=== PATIENT | female | born 1965 | race Caucasian/White ===

== ENCOUNTER 2018-08-06 23:31 | Inpatient (IN) | payer OTHER ==
--- NOTE | 2018-08-07 01:58 | HP ---
"CIWA Score - Admission Criteria OASAS Guidelines: Admission for Medically Managed Detox: Requires at least one of the followin. CIWA greater than 12 2. Seizures within the past 24 hours 3. Delirium tremens within the past 24 hours 4. Hallucinations within the past 24 hours 5. Acute intervention needed for co occurring medical disorder 6. Acute intervention needed for co occurring psychiatric disorder 7. Severe withdrawal that cannot be handled at a lower level of care (continued vomiting, continued diarrhea, abnormal vital signs) requiring intravenous medication and/or fluids 8. Admission ROS S - HPI Chief Complaint: Here for rehab. Allergies/Adverse Reactions: Allergies Allergy/AdvReac Type Severity Reaction Status Date / Time Penicillins Allergy Unknown Verified 08/07/18 02:02 History of Present Illness: Hx alcohol use since age 20. Recent hospitalization and Detox at [facility]. Admitted 07/13/18 and discharged 08/06/18. Denies withdrawal symptoms at this time. PMHx: Cirrhosis of the Liver GI bleed 07/21/18 Jaundice started about March 2018. Urinary urgency w/ incontinence. Reviewed Kegel exercises. Uses adult pull- ups on occasion. Skin rash- r/t liver - itchy Skin moles. Stable MHHx Depression and anxiety. Denies thoughts of harming self or other. Takes prescribed Seroquel and Trazodone. See a mental health provider. Search Terms: Reanna Mosley, 1965 Search Date: 08/07/2018 02:26:26 AM The Drug Utilization Report below displays all of the controlled substance prescriptions, if any, that your patient has filled in the last twelve months. The information displayed on this report is compiled from pharmacy submissions to the Department, and accurately reflects the information as submitted by the pharmacies. This report was requested by: Arcelia Felipe | Reference #: [id number] There are no results for the search terms that you entered. Exam Limitations: No Limitations - Ebola screening Have you traveled outside of the country in the last 21 days: No (N) Have you had contact with anyone from an Ebola affected area: No Have you been sick,other than usual withdrawal symptoms: No Do you have a fever: No - Review of Systems Constitutional: Chills, Changes in sleep (Difficulty falling asleep - helped w/ trazodone) EENT: reports: Blurred Vision, Sinus Pressure, Other (Oc bloody nose) Respiratory: reports: Cough (Nagging cough - recent tx for bronchitits.) Cardiac: reports: No Symptoms Reported GI: reports: Rectal Bleeding (Recent bloody stools. Resovled. Denies abd pain, nausea or vomiting.) : reports: Urgency (Resulting in incontinence. Denies burnibng, pain or blood w/ urination.) Musculoskeletal: reports: No Symptoms Reported Integumentary: reports: Rash (Generalized - r/t liver disorder), Other ( Jaundiced) Neuro: reports: No Symptoms reported Endocrine: reports: Intolerance to Cold Hematology: reports: No Symptoms Reported Psychiatric: reports: Judgement Intact, Orientated x3, Depressed (Mild. Denies thoughts of harming self or other.) Patient History - Patient Medical History Hx Cardiac Disorders: No Hx Hypertension: No - PPD History Previous Implant?: Yes Documented Results: Negative w/o proof PPD to be Administered?: Yes - Reproductive History Patient is a Female of Child Bearing Age (11 -55 yrs old): Yes Patient : No - Smoking Cessation Smoking history: Never smoked - Substance & Tx. History Hx Alcohol Use: Yes Hx Substance Use: Yes Substance Use Type: Alcohol Hx Substance Use Treatment: Yes (detox) Admission Physical Exam BHS - Physical General Appearance: Yes: Nourished, Appropriately Dressed, Other (Jaundiced) HEENTM: Yes: EOMI, Hearing grossly Normal, Normocephalic, Normal Voice, RAFAELA, Scleral Ictenus R, Scleral Ictenus L Respiratory: Yes: Lungs Clear, Normal Breath Sounds, No Respiratory Distress Neck: Yes: No masses,lesions,Nodules, Supple Breast: Yes: Breast Exam Deferred Cardiology: Yes: Regular Rhythm, Regular Rate, S1, S2 Abdominal: Yes: Normal Bowel Sounds, Non Tender, Soft Genitourinary: Yes: Uregency (w/ incontinence) Back: Yes: Normal Inspection Musculoskeletal: Yes: full range of Motion, Gait Steady Extremities: Yes: Normal Capillary Refill, Normal Range of Motion, Tremors Neurological: Yes: packager II-XII NML intact, Fully Oriented, Alert, Motor Strength 5/5, Normal Mood/Affect Integumentary: Yes: Dry, Warm, Jaundice (Generalized deep yellow skin.), Rash ( Generalized red spotty rash. Scattered moles.) Lymphatic: Yes: Within Normal Limits - Diagnostic (1) Alcohol use disorder, moderate, in early remission Current Visit: Yes Status: Acute (2) Cirrhosis Current Visit: Yes Status: Chronic Qualifiers: Hepatic cirrhosis type: alcoholic cirrhosis Ascites presence: without ascites Qualified Code(s): K70.30 - Alcoholic cirrhosis of liver without ascites (3) Jaundice Current Visit: Yes Status: Chronic (4) History of GI bleed Current Visit: Yes Status: Resolved (5) Incontinence of urine in female Current Visit: Yes Status: Chronic Comment: Associated with urgency (6) Rash and other nonspecific skin eruption Current Visit: Yes Status: Chronic Cleared for Admission BHS - Detox or Rehab Claeared for Rehab Admission: Yes Inpatient Rehab Admission - Rehab Decision to Admit Inpatient rehab admission?: Yes - Initial Determination Are CD services needed?: Yes Free of communicable disease: Yes Not in need of hospitalization: Yes - Rehab Admission Criteria Previous failed treatment: Yes Poor recovery environment: Yes Comorbidities: Yes Lacks judgement: No Patient is meeting Inpatient Rehab admission criteria:: Yes"
[2018-08-07] MEDS ORDERED: MAG HYDROX/AL HYDROX/SIMETH 30 ML UNIT-DOSE CUP PO PRN (02:02)
[2018-08-07] MEDS ORDERED: ACETAMINOPHEN 325 MG TABLET (FP) PO PRN (02:02)
[2018-08-07] MEDS ORDERED: MAGNESIUM HYDROX 2400MG/30ML ORAL SUSPENSION 30 ML CUP PO PRN (02:02)
[2018-08-07] MEDS ORDERED: MENTHOL/PHENOL 1 EACH UD MM PRN (02:02)
[2018-08-07] MEDS ORDERED: MAGNESIUM CITRATE 300 ML BOTTLE PO PRN (02:02)
[2018-08-07] MEDS ORDERED: LOPERAMIDE HCL 2 MG CAPSULE PO PRN (02:02)
[2018-08-07] MEDS ORDERED: MINERAL OIL/PETROLAT/WATER TOPICAL CREAM 454 GM JAR TP PRN (03:00)
[2018-08-07] MEDS ORDERED: traZODone HCL 50 MG TABLET (FP) PO ONE (03:01)
[2018-08-07] MEDS ORDERED: TUBERCULIN PPD 5 TU/0.1ML VIAL ID ONE (04:16)
[2018-08-07] MEDS: guaiFENesin 200 MG/10 ML 10 ML UNIT-DOSE CUPS PO PRN ×2 (04:24→21:30)
[2018-08-07 07:37] VITALS: BMI 23.3
[2018-08-07] MEDS: PANTOPRAZOLE 40 MG TABLET (FP) PO SCH (10:35)
[2018-08-07] MEDS: PRENATAL VITAMINS W/ FOLIC ACID TABLET (FP) PO SCH (10:35)
[2018-08-07 12:08] LABS: HEMOGLOBIN 10.5 GM/dL (10.7-15.3); MCH 38.8 pg (25.7-33.7)
[2018-08-07 12:11] LABS: HEMATOCRIT 30.5 % (32.4-45.2); MCHC 34.5 g/dl (32.0-36.0); MEAN CELL VOLUME 112.4 fl (80-96); PLATELET COUNT 270 K/MM3 (134-434); RBC 2.72 M/mm3 (3.60-5.2); RDW 16.2 % (11.6-15.6); WHITE BLOOD COUNT 8.3 K/mm3 (4.0-10.0)
[2018-08-07 12:37] LABS: ALBUMIN 2.4 g/dl (3.4-5.0); ALK PHOS 279 U/L (45-117); ANION GAP 8 MMOL/L (8-16); BLOOD UREA NITROGEN 5 mg/dL (7-18); CALCIUM 8.7 mg/dL (8.5-10.1); CHLORIDE 102 mmol/L (98-107); CO2 26 mmol/L (21-32); CREATININE 0.8 mg/dL (0.55-1.3); GLUCOSE,RANDOM 99 mg/dL (74-106); POTASSIUM 3.3 mmol/L (3.5-5.1); SGOT/AST 95 U/L (15-37); SGPT/ALT 15 U/L (13-61); SODIUM 136 mmol/L (136-145); TOT PROT 7.3 g/dl (6.4-8.2)
[2018-08-07 17:09] LABS: URINE APPEARANCE CLEAR; URINE COLOR AMBER; URINE GLUCOSE (UA) NEGATIVE (NEGATIVE); URINE KETONE NEGATIVE (NEGATIVE); URINE LEUK ESTERASE NEGATIVE (NEGATIVE); URINE NITRITE NEGATIVE (NEGATIVE); URINE PROTEIN NEGATIVE (NEGATIVE)
[2018-08-07] MEDS: THIAMINE HCL 100 MG TABLET (FP) PO SCH (21:27)
[2018-08-07] MEDS: MELATONIN 5 MG TABLETS PO PRN (21:28)
[2018-08-07] MEDS: hydrOXYzine PAMOATE 25 MG CAPSULE (FP) PO PRN (21:29)
[2018-08-08] MEDS: PRENATAL VITAMINS W/ FOLIC ACID TABLET (FP) PO SCH (10:08)
[2018-08-08] MEDS: PANTOPRAZOLE 40 MG TABLET (FP) PO SCH (10:08)
[2018-08-08] MEDS: guaiFENesin 200 MG/10 ML 10 ML UNIT-DOSE CUPS PO PRN (18:22)
[2018-08-08] MEDS: THIAMINE HCL 100 MG TABLET (FP) PO SCH (21:05)
[2018-08-08] MEDS: hydrOXYzine PAMOATE 25 MG CAPSULE (FP) PO PRN (21:05)
[2018-08-08] MEDS: MELATONIN 5 MG TABLETS PO PRN (21:05)
--- NOTE | 2018-08-09 09:33 | CONSULT ---
[facility] Psychiatric Consult - Data Date of interview: 08/09/18 Admission source: [facility] Identifying data: Ms Mosley is a 53 years old female, mother of 2 children, unemployed, domiciled seeking inpatient rehab treatment for alcohol Substance Abuse History: Reports history of alcohol use. Refer to addiction counselor's summary for further information Medical History: Significant for cirrhosis of the liver and historym of gasto intestinal bleeding. Psychiatric History: Reports receiving treatment for anxiety for the past 4 years. Reports seeing a private psychiatrist in [place] and she is prescribed Seroquel 25 mg po BID, Trazadone 100 mg po Hs and Gabapentin mg TID. She denies previous psychiatric chospitalization or suicidal attempt. At present, reports feeling mildly anxious and sleeping poorly Physical/Sexual Abuse/Trauma History: Denies history of emotional, physical or sexual abuse as well as DV relationship. No service Additional Comment: Denies criminal history Mental Status Exam - Mental Status Exam Alert and Oriented to: Time, Place, Person Cognitive Function: Fair Patient Appearance: Well Groomed Mood: Anxious (mildly) Affect: Appropriate Patient Behavior: Cooperative Speech Pattern: Clear Voice Loudness: Normal Thought Process: Intact Thought Disorder: Not Present Hallucinations: Denies Suicidal Ideation: Denies Homicidal Ideation: Denies Insight/Judgement: Fair Sleep: Poorly Appetite: Fair Muscle strength/Tone: Normal Gait/Station: Normal Psychiatric Findings - Problem List ([place] 1, 2,3) (1) Anxiety disorder Current Visit: Yes Status: Chronic (2) Alcohol-induced anxiety disorder Current Visit: Yes Status: Acute (3) Alcohol-induced sleep disorder Current Visit: Yes Status: Acute (4) Alcohol dependence Current Visit: Yes Status: Acute (5) Cirrhosis Current Visit: Yes Status: Chronic Qualifiers: Hepatic cirrhosis type: alcoholic cirrhosis Ascites presence: without ascites Qualified Code(s): K70.30 - Alcoholic cirrhosis of liver without ascites (6) History of GI bleed Current Visit: Yes Status: Resolved - Initial Treatment Plan Initial Treatment Plan: 1) Continue Seroquel 25 mg po BID, Trazadone 100 mg po HS and Gabapentin TID. 2) Continue inpatient detoxification
[2018-08-09] MEDS: PANTOPRAZOLE 40 MG TABLET (FP) PO SCH (10:14)
[2018-08-09] MEDS: QUEtiapine FUMARATE 25 MG TABLET (FP) PO SCH ×2 (10:14→21:33)
[2018-08-09] MEDS: PRENATAL VITAMINS W/ FOLIC ACID TABLET (FP) PO SCH (10:14)
[2018-08-09] MEDS: guaiFENesin 200 MG/10 ML 10 ML UNIT-DOSE CUPS PO PRN ×2 (11:00→21:34)
[2018-08-09] MEDS ORDERED: PT OWN MED DRAWER 7, Y5N ONE (11:02)
--- NOTE | 2018-08-09 11:24 | EKG ---
Test Reason : Blood Pressure : / mmHG Vent. Rate : 096 BPM Atrial Rate : 096 BPM P-R Int : 124 ms QRS Dur : 086 ms QT Int : 382 ms P-R-T Axes : 069 036 013 degrees QTc Int : 482 ms NORMAL SINUS RHYTHM POSSIBLE LEFT ATRIAL ENLARGEMENT NONSPECIFIC ST ABNORMALITY PROLONGED QT ABNORMAL ECG NO PREVIOUS ECGS AVAILABLE Confirmed by CARLOS ALBERTO GAYLE MD ([id number]) on 08/09/2018 11:23:53 AM Referred By: Confirmed By:CARLOS ALBERTO GAYLE MD
[2018-08-09] MEDS: THIAMINE HCL 100 MG TABLET (FP) PO SCH (21:33)
[2018-08-09] MEDS: traZODone HCL 100 MG TABLET (FP) PO SCH (21:33)
[2018-08-10] MEDS: PRENATAL VITAMINS W/ FOLIC ACID TABLET (FP) PO SCH (10:02)
[2018-08-10] MEDS: PANTOPRAZOLE 40 MG TABLET (FP) PO SCH (10:02)
[2018-08-10] MEDS: QUEtiapine FUMARATE 25 MG TABLET (FP) PO SCH ×2 (10:02→21:05)
[2018-08-10] MEDS: traZODone HCL 100 MG TABLET (FP) PO SCH (21:05)
[2018-08-10] MEDS: THIAMINE HCL 100 MG TABLET (FP) PO SCH (21:05)
[2018-08-10] MEDS: guaiFENesin 200 MG/10 ML 10 ML UNIT-DOSE CUPS PO PRN (21:06)
[2018-08-10] MEDS ORDERED: diphenhydrAMINE HCL 50 MG CAPSULE PO PRN (22:00)
[2018-08-11] MEDS: PRENATAL VITAMINS W/ FOLIC ACID TABLET (FP) PO SCH (09:54)
[2018-08-11] MEDS: PANTOPRAZOLE 40 MG TABLET (FP) PO SCH (09:54)
[2018-08-11] MEDS: QUEtiapine FUMARATE 25 MG TABLET (FP) PO SCH ×2 (09:55→21:21)
--- NOTE | 2018-08-11 11:02 | PN ---
[facility] Progress Note Note: client c/o itching yesterday and agreed to Benadryl 50 mg at bedtime. Today she states that although the Benadryl relieves the itch, the effect does not remain during the day and is requesting to have the doses split. In addition, she requested to review her chemistry labs because of her liver cirrhosis. CBC,CMP WBC 8.3 K/mm3 (4.0-10.0) 08/07/18 09:40 RBC 2.72 M/mm3 (3.60-5.2) L 08/07/18 09:40 Hgb 10.5 GM/dL (10.7-15.3) L 08/07/18 09:40 Hct 30.5 % (32.4-45.2) L 08/07/18 09:40 MCV 112.4 fl (80-96) H 08/07/18 09:40 MCH 38.8 pg (25.7-33.7) H 08/07/18 09:40 MCHC 34.5 g/dl (32.0-36.0) 08/07/18 09:40 RDW 16.2 % (11.6-15.6) H 08/07/18 09:40 Plt Count 270 K/MM3 (134-434) 08/07/18 09:40 MPV 8.0 fl (7.5-11.1) 08/07/18 09:40 Sodium 136 mmol/L (136-145) 08/07/18 09:40 Potassium 3.3 mmol/L (3.5-5.1) L 08/07/18 09:40 Chloride 102 mmol/L (98-107) 08/07/18 09:40 Carbon Dioxide 26 mmol/L (21-32) 08/07/18 09:40 Anion Gap 8 MMOL/L (8-16) 08/07/18 09:40 BUN 5 mg/dL (7-18) L 08/07/18 09:40 Creatinine 0.8 mg/dL (0.55-1.3) 08/07/18 09:40 Creat Clearance w eGFR > 60 (>60) 08/07/18 09:40 Random Glucose 99 mg/dL (74-106) 08/07/18 09:40 Calcium 8.7 mg/dL (8.5-10.1) 08/07/18 09:40 Total Bilirubin 15.0 mg/dL (0.2-1) H 08/07/18 09:40 AST 95 U/L (15-37) H 08/07/18 09:40 ALT 15 U/L (13-61) 08/07/18 09:40 Alkaline Phosphatase 279 U/L (45-117) H 08/07/18 09:40 Ammonia 33.60 umol/L (11-32) H 08/07/18 09:40 Total Protein 7.3 g/dl (6.4-8.2) 08/07/18 09:40 Albumin 2.4 g/dl (3.4-5.0) L 08/07/18 09:40 Benadryl was changed to 25 mg BID. Chemistry labs, specifically liver enzymes were reviewed with patient, who stated she understood the teaching. Client will f/u with PCP upon discharge for care.
[2018-08-11] MEDS: diphenhydrAMINE HCL 25 MG CAPSULE (FP) PO SCH ×2 (11:59→21:21)
[2018-08-11] MEDS: THIAMINE HCL 100 MG TABLET (FP) PO SCH (21:20)
[2018-08-11] MEDS: guaiFENesin 200 MG/10 ML 10 ML UNIT-DOSE CUPS PO PRN (21:20)
[2018-08-11] MEDS: traZODone HCL 100 MG TABLET (FP) PO SCH (21:21)
[2018-08-12] MEDS: PANTOPRAZOLE 40 MG TABLET (FP) PO SCH (10:08)
[2018-08-12] MEDS: diphenhydrAMINE HCL 25 MG CAPSULE (FP) PO SCH ×2 (10:08→21:43)
[2018-08-12] MEDS: QUEtiapine FUMARATE 25 MG TABLET (FP) PO SCH ×2 (10:08→21:43)
[2018-08-12] MEDS: PRENATAL VITAMINS W/ FOLIC ACID TABLET (FP) PO SCH (10:08)
[2018-08-12] MEDS: traZODone HCL 100 MG TABLET (FP) PO SCH (21:43)
[2018-08-12] MEDS: THIAMINE HCL 100 MG TABLET (FP) PO SCH (21:43)
[2018-08-13] MEDS: QUEtiapine FUMARATE 25 MG TABLET (FP) PO SCH ×2 (10:26→21:11)
[2018-08-13] MEDS: PANTOPRAZOLE 40 MG TABLET (FP) PO SCH (10:26)
[2018-08-13] MEDS: diphenhydrAMINE HCL 25 MG CAPSULE (FP) PO SCH ×2 (10:26→21:11)
[2018-08-13] MEDS: PRENATAL VITAMINS W/ FOLIC ACID TABLET (FP) PO SCH (10:26)
[2018-08-13] MEDS: guaiFENesin 200 MG/10 ML 10 ML UNIT-DOSE CUPS PO PRN ×2 (10:28→21:14)
[2018-08-13] MEDS: traZODone HCL 100 MG TABLET (FP) PO SCH (21:11)
[2018-08-13] MEDS: THIAMINE HCL 100 MG TABLET (FP) PO SCH (21:11)
[2018-08-14] MEDS: PRENATAL VITAMINS W/ FOLIC ACID TABLET (FP) PO SCH (10:21)
[2018-08-14] MEDS: diphenhydrAMINE HCL 25 MG CAPSULE (FP) PO SCH ×2 (10:21→21:29)
[2018-08-14] MEDS: PANTOPRAZOLE 40 MG TABLET (FP) PO SCH (10:21)
[2018-08-14] MEDS: QUEtiapine FUMARATE 25 MG TABLET (FP) PO SCH ×2 (10:21→21:29)
[2018-08-14] MEDS: guaiFENesin 200 MG/10 ML 10 ML UNIT-DOSE CUPS PO PRN (10:22)
[2018-08-14 11:07] LABS: ANION GAP 10 MMOL/L (8-16); BLOOD UREA NITROGEN 6 mg/dL (7-18); CALCIUM 8.5 mg/dL (8.5-10.1); CHLORIDE 104 mmol/L (98-107); CO2 25 mmol/L (21-32); CREATININE 0.7 mg/dL (0.55-1.3); GLUCOSE,RANDOM 70 mg/dL (74-106); POTASSIUM 3.4 mmol/L (3.5-5.1); SODIUM 139 mmol/L (136-145)
[2018-08-14] MEDS ORDERED: POTASSIUM CHLORIDE ORAL LIQUID 20 MEQ/15 ML PO ONE (11:38)
--- NOTE | 2018-08-14 11:45 | PN ---
[facility] Progress Note Note: Laboratory Last Values WBC 8.3 K/mm3 (4.0-10.0) 08/07/18 09:40 RBC 2.72 M/mm3 (3.60-5.2) L 08/07/18 09:40 Hgb 10.5 GM/dL (10.7-15.3) L 08/07/18 09:40 Hct 30.5 % (32.4-45.2) L 08/07/18 09:40 MCV 112.4 fl (80-96) H 08/07/18 09:40 MCH 38.8 pg (25.7-33.7) H 08/07/18 09:40 MCHC 34.5 g/dl (32.0-36.0) 08/07/18 09:40 RDW 16.2 % (11.6-15.6) H 08/07/18 09:40 Plt Count 270 K/MM3 (134-434) 08/07/18 09:40 MPV 8.0 fl (7.5-11.1) 08/07/18 09:40 Sodium 139 mmol/L (136-145) 08/14/18 07:50 Potassium 3.4 mmol/L (3.5-5.1) L 08/14/18 07:50 Chloride 104 mmol/L (98-107) 08/14/18 07:50 Carbon Dioxide 25 mmol/L (21-32) 08/14/18 07:50 Anion Gap 10 MMOL/L (8-16) 08/14/18 07:50 BUN 6 mg/dL (7-18) L 08/14/18 07:50 Creatinine 0.7 mg/dL (0.55-1.3) 08/14/18 07:50 Creat Clearance w eGFR 87.20 (>60) 08/14/18 07:50 Random Glucose 70 mg/dL (74-106) L 08/14/18 07:50 Calcium 8.5 mg/dL (8.5-10.1) 08/14/18 07:50 Total Bilirubin 15.0 mg/dL (0.2-1) H 08/07/18 09:40 AST 95 U/L (15-37) H 08/07/18 09:40 ALT 15 U/L (13-61) 08/07/18 09:40 Alkaline Phosphatase 279 U/L (45-117) H 08/07/18 09:40 Ammonia 33.60 umol/L (11-32) H 08/07/18 09:40 Total Protein 7.3 g/dl (6.4-8.2) 08/07/18 09:40 Albumin 2.4 g/dl (3.4-5.0) L 08/07/18 09:40 Urine Color Sonia 08/07/18 15:37 Urine Appearance Clear 08/07/18 15:37 Urine pH 6.0 (5.0-8.0) 08/07/18 15:37 Ur Specific [place] 1.006 (1.010-1.035) L 08/07/18 15:37 Urine Protein Negative (NEGATIVE) 08/07/18 15:37 Urine Glucose (UA) Negative (NEGATIVE) 08/07/18 15:37 Urine Ketones Negative (NEGATIVE) 08/07/18 15:37 Urine Blood Negative (NEGATIVE) 08/07/18 15:37 Urine Nitrite Negative (NEGATIVE) 08/07/18 15:37 Urine Bilirubin 2.0 (<2.0 mg/dL) 08/07/18 15:37 Urine Urobilinogen 2.0 mg/dL (0.2-1.0) H 08/07/18 15:37 Ur Leukocyte Esterase Negative (NEGATIVE) 08/07/18 15:37 RPR Titer Nonreactive (NONREACTIVE) 08/07/18 09:40 bilirubi 15.0 k 3.4,bun 6,creatinine 07 alkaline phosphatase 279 ammonia 33.60 history of cirrhosis of liver kcl 20 meq po bid for 3 days for hypokalemia encourage oral intake repreat cbc,cmp,inr in am close monitoring Vital Signs Temperature 98.6 F 08/14/18 06:58 Pulse Rate 93 H 08/14/18 06:58 Respiratory Rate 18 08/14/18 06:58 Blood Pressure 108/67 08/14/18 06:58 O2 Sat by Pulse Oximetry (%)
[2018-08-14] MEDS: traZODone HCL 100 MG TABLET (FP) PO SCH (21:29)
[2018-08-14] MEDS: THIAMINE HCL 100 MG TABLET (FP) PO SCH (21:29)
[2018-08-14] MEDS ORDERED: PT OWN MED DRAWER 7, Y5N ONE (21:30)
[2018-08-14] MEDS: POTASSIUM CHLORIDE ORAL LIQUID 20 MEQ/15 ML PO SCH (21:31)
[2018-08-15] MEDS ORDERED: PT OWN MED DRAWER 7, Y5N ONE ×2 (08:34→20:06)
[2018-08-15] MEDS: POTASSIUM CHLORIDE ORAL LIQUID 20 MEQ/15 ML PO SCH ×2 (10:30→21:20)
[2018-08-15] MEDS: PANTOPRAZOLE 40 MG TABLET (FP) PO SCH (10:31)
[2018-08-15] MEDS: QUEtiapine FUMARATE 25 MG TABLET (FP) PO SCH ×2 (10:31→21:20)
[2018-08-15] MEDS: diphenhydrAMINE HCL 25 MG CAPSULE (FP) PO SCH ×2 (10:31→21:20)
[2018-08-15] MEDS: PRENATAL VITAMINS W/ FOLIC ACID TABLET (FP) PO SCH (10:31)
[2018-08-15] MEDS: guaiFENesin 200 MG/10 ML 10 ML UNIT-DOSE CUPS PO PRN ×2 (10:33→21:21)
[2018-08-15 11:19] LABS: HEMATOCRIT 30.7 % (32.4-45.2); HEMOGLOBIN 10.7 GM/dL (10.7-15.3); MCH 38.2 pg (25.7-33.7); MCHC 34.8 g/dl (32.0-36.0); MEAN CELL VOLUME 109.6 fl (80-96); MEAN PLT VOLUME 8.3 fl (7.5-11.1); PLATELET COUNT 218 K/MM3 (134-434); RDW 14.1 % (11.6-15.6); WHITE BLOOD COUNT 6.9 K/mm3 (4.0-10.0)
[2018-08-15 11:51] LABS: INR 1.58 (0.83-1.09); PROTHROMBIN TIME (PATIENT) 18.7 SEC (9.7-13.0)
[2018-08-15 12:16] LABS: ALBUMIN 2.3 g/dl (3.4-5.0); ALK PHOS 207 U/L (45-117); ANION GAP 8 MMOL/L (8-16); BILIRUBIN,TOTAL 8.4 mg/dL (0.2-1); BLOOD UREA NITROGEN 5 mg/dL (7-18); CALCIUM 8.3 mg/dL (8.5-10.1); CHLORIDE 105 mmol/L (98-107); CO2 26 mmol/L (21-32); CREATININE 0.8 mg/dL (0.55-1.3); GLUCOSE,RANDOM 139 mg/dL (74-106); POTASSIUM 3.7 mmol/L (3.5-5.1); SGOT/AST 56 U/L (15-37); SGPT/ALT 17 U/L (13-61); SODIUM 139 mmol/L (136-145); TOT PROT 6.9 g/dl (6.4-8.2)
[2018-08-15] MEDS: THIAMINE HCL 100 MG TABLET (FP) PO SCH (21:20)
[2018-08-15] MEDS: traZODone HCL 100 MG TABLET (FP) PO SCH (21:20)
[2018-08-16] MEDS ORDERED: PT OWN MED DRAWER 7, Y5N ONE (08:40)
[2018-08-16] MEDS: PRENATAL VITAMINS W/ FOLIC ACID TABLET (FP) PO SCH (10:18)
[2018-08-16] MEDS: QUEtiapine FUMARATE 25 MG TABLET (FP) PO SCH ×2 (10:18→21:30)
[2018-08-16] MEDS: PANTOPRAZOLE 40 MG TABLET (FP) PO SCH (10:18)
[2018-08-16] MEDS: diphenhydrAMINE HCL 25 MG CAPSULE (FP) PO SCH ×2 (10:18→21:30)
[2018-08-16] MEDS: POTASSIUM CHLORIDE ORAL LIQUID 20 MEQ/15 ML PO SCH ×2 (10:33→21:31)
[2018-08-16] MEDS: IBUPROFEN 400 MG TABLET (FP) PO PRN (18:38)
[2018-08-16] MEDS: guaiFENesin 200 MG/10 ML 10 ML UNIT-DOSE CUPS PO PRN (18:38)
[2018-08-16] MEDS: traZODone HCL 100 MG TABLET (FP) PO SCH (21:30)
[2018-08-16] MEDS: THIAMINE HCL 100 MG TABLET (FP) PO SCH (21:30)
[2018-08-17] MEDS: PRENATAL VITAMINS W/ FOLIC ACID TABLET (FP) PO SCH (10:10)
[2018-08-17] MEDS: diphenhydrAMINE HCL 25 MG CAPSULE (FP) PO SCH ×2 (10:10→21:31)
[2018-08-17] MEDS: QUEtiapine FUMARATE 25 MG TABLET (FP) PO SCH ×2 (10:10→21:31)
[2018-08-17] MEDS: PANTOPRAZOLE 40 MG TABLET (FP) PO SCH (10:10)
[2018-08-17] MEDS: IBUPROFEN 400 MG TABLET (FP) PO PRN (10:11)
[2018-08-17] MEDS: traZODone HCL 100 MG TABLET (FP) PO SCH (21:31)
[2018-08-17] MEDS: THIAMINE HCL 100 MG TABLET (FP) PO SCH (21:31)
[2018-08-18] MEDS: diphenhydrAMINE HCL 25 MG CAPSULE (FP) PO SCH ×2 (10:04→21:20)
[2018-08-18] MEDS: PRENATAL VITAMINS W/ FOLIC ACID TABLET (FP) PO SCH (10:04)
[2018-08-18] MEDS: IBUPROFEN 400 MG TABLET (FP) PO PRN ×2 (10:05→21:18)
[2018-08-18] MEDS: PANTOPRAZOLE 40 MG TABLET (FP) PO SCH (10:05)
[2018-08-18] MEDS: QUEtiapine FUMARATE 25 MG TABLET (FP) PO SCH ×2 (10:05→21:19)
[2018-08-18] MEDS: traZODone HCL 100 MG TABLET (FP) PO SCH (21:19)
[2018-08-18] MEDS: THIAMINE HCL 100 MG TABLET (FP) PO SCH (21:36)
[2018-08-19] MEDS: PANTOPRAZOLE 40 MG TABLET (FP) PO SCH (10:09)
[2018-08-19] MEDS: diphenhydrAMINE HCL 25 MG CAPSULE (FP) PO SCH ×2 (10:09→21:36)
[2018-08-19] MEDS: PRENATAL VITAMINS W/ FOLIC ACID TABLET (FP) PO SCH (10:09)
[2018-08-19] MEDS: QUEtiapine FUMARATE 25 MG TABLET (FP) PO SCH ×2 (10:09→21:36)
[2018-08-19] MEDS: IBUPROFEN 400 MG TABLET (FP) PO PRN ×2 (10:10→21:37)
--- NOTE | 2018-08-19 11:13 | PN ---
S Progress Note Note: Aftercare at [facility] in [place] on [address]. Client plans to get primary care at [facility]. Home meds- protonix and gabapentin ordered and transmitted.
[2018-08-19] MEDS: traZODone HCL 100 MG TABLET (FP) PO SCH (21:36)
[2018-08-19] MEDS: THIAMINE HCL 100 MG TABLET (FP) PO SCH (21:36)
[2018-08-20 07:16] VITALS: BP 116/75; PULSE 85; TEMP 97.9
--- NOTE | 2018-08-20 07:49 | PN ---
[facility] Progress Note Note: Patient is discharged today. Scripts for Trazadone 100 mg po HS, Seroquel 50 mg po BID are electronically transmitted to [facility] at [address] [place] [id number]
--- NOTE | 2018-08-20 08:33 | PN ---
[facility] Progress Note Note: PT COMPLETED DETOX AND DISCHARGED TODAY. ALERT O X 3. AMBULATING WITH STEADY GAIT. DENIES S/H/I. Vital Signs (72 hours) 08/18/18 08/18/18 08/18/18 00:30 03:30 07:31 Temperature 98.2 F Pulse Rate 99 H Respiratory 16 16 18 Rate Blood Pressure 111/74 08/19/18 08/19/18 08/19/18 00:30 03:30 07:10 Temperature 98.0 F Pulse Rate 101 H Respiratory 16 16 18 Rate Blood Pressure 105/67 08/20/18 08/20/18 08/20/18 00:30 03:30 07:15 Temperature 97.9 F Pulse Rate 85 Respiratory 18 18 18 Rate Blood Pressure 116/75 Laboratory Tests 08/07/18 08/07/18 08/07/18 09:40 09:40 09:40 WBC 8.3 RBC 2.72 L Hgb 10.5 L Hct 30.5 L MCV 112.4 H MCH 38.8 H MCHC 34.5 RDW 16.2 H Plt Count 270 MPV 8.0 PT with INR INR Sodium 136 Potassium 3.3 L Chloride 102 Carbon Dioxide 26 Anion Gap 8 BUN 5 L Creatinine 0.8 Creat Clearance w eGFR > 60 Random Glucose 99 Calcium 8.7 Total Bilirubin 15.0 H AST 95 H ALT 15 Alkaline Phosphatase 279 H Ammonia Total Protein 7.3 Albumin 2.4 L Urine Color Urine Appearance Urine pH Ur Specific [place] Urine Protein Urine Glucose (UA) Urine Ketones Urine Blood Urine Nitrite Urine Bilirubin Urine Urobilinogen Ur Leukocyte Esterase RPR Titer Nonreactive 08/07/18 08/07/18 08/14/18 09:40 15:37 07:50 WBC RBC Hgb Hct MCV MCH MCHC RDW Plt Count MPV PT with INR INR Sodium 139 Potassium 3.4 L Chloride 104 Carbon Dioxide 25 Anion Gap 10 BUN 6 L Creatinine 0.7 Creat Clearance w eGFR 87.20 Random Glucose 70 L Calcium 8.5 Total Bilirubin AST ALT Alkaline Phosphatase Ammonia 33.60 H Total Protein Albumin Urine Color Sonia Urine Appearance Clear Urine pH 6.0 Ur Specific [place] 1.006 L Urine Protein Negative Urine Glucose (UA) Negative Urine Ketones Negative Urine Blood Negative Urine Nitrite Negative Urine Bilirubin 2.0 Urine Urobilinogen 2.0 H Ur Leukocyte Esterase Negative RPR Titer 03/08/15/18 08/15/18 08:00 08:00 08:00 WBC 6.9 RBC 2.80 L Hgb 10.7 Hct 30.7 L MCV 109.6 H MCH 38.2 H MCHC 34.8 RDW 14.1 D Plt Count 218 MPV 8.3 PT with INR 18.70 H INR 1.58 H Sodium 139 Potassium 3.7 Chloride 105 Carbon Dioxide 26 Anion Gap 8 BUN 5 L Creatinine 0.8 Creat Clearance w eGFR 74.75 Random Glucose 139 H Calcium 8.3 L Total Bilirubin 8.4 H AST 56 H ALT 17 Alkaline Phosphatase 207 H Ammonia Total Protein 6.9 Albumin 2.3 L Urine Color Urine Appearance Urine pH Ur Specific [place] Urine Protein Urine Glucose (UA) Urine Ketones Urine Blood Urine Nitrite Urine Bilirubin Urine Urobilinogen Ur Leukocyte Esterase RPR Titer NAD MEDICALLY STABLE TO FOLLOW UP WITH CD AFTERCARE RECOMMENDED. TO FOLLOW UP WITH PMD AT [facility] WITHIN 1-2 WEEKS AFTER DISCHARGE.
[2018-08-20] MEDS: PRENATAL VITAMINS W/ FOLIC ACID TABLET (FP) PO SCH (09:12)
[2018-08-20] MEDS: PANTOPRAZOLE 40 MG TABLET (FP) PO SCH (09:12)
[2018-08-20] MEDS: QUEtiapine FUMARATE 25 MG TABLET (FP) PO SCH (09:13)
[2018-08-20] MEDS: diphenhydrAMINE HCL 25 MG CAPSULE (FP) PO SCH (09:14)
== END 2018-08-20 09:22 | disposition home or self-care (01) | DRG 772 ==
LOC: YASAS 23:31 → Y3E 08-07 00:03
PROVIDERS: ADMIT Neuromusculoskeletal Medicine & OMM; ATTEND Neuromusculoskeletal Medicine & OMM
PROC: HZ42ZZZ Group Counseling for Substance Abuse Treatment, Cognitive-Behavioral (ICD-10-PCS; principal; 2018-08-07)
DX: F10.20 Alcohol dependence, uncomplicated (principal); F10.280 Alcohol dependence with alcohol-induced anxiety disorder; F10.282 Alcohol dependence with alcohol-induced sleep disorder; F41.9 Anxiety disorder, unspecified; K70.30 Alcoholic cirrhosis of liver without ascites; R17 Unspecified jaundice; R21 Rash and other nonspecific skin eruption; R32 Unspecified urinary incontinence; Z87.19 Personal history of other diseases of the digestive system; Z88.0 Allergy status to penicillin
CPT/HCPCS: 36415; 80048; 80053; 81003; 82140; 85027; 85610; 86593; 93005; 93010

== ENCOUNTER 2023-03-12 17:04 | Inpatient (IN) | payer OTHER ==
[2023-03-12 18:51] VITALS: BMI 26.6
[2023-03-12] MEDS ORDERED: LORazepam 2 MG/ML SDV VIAL IM ONE (19:30)
[2023-03-12] MEDS ORDERED: chlordiazePOXIDE HCL 25 MG CAPSULE PO PRN (19:36)
[2023-03-12] MEDS ORDERED: BENZOCAINE/MENTHOL (CHLORASEPTIC ) LOZENGE MM PRN (19:36)
[2023-03-12] MEDS ORDERED: ACETAMINOPHEN 325 MG TABLET (FP) PO PRN (19:36)
[2023-03-12] MEDS ORDERED: BISMUTH SUBSALICYLATE 524 MG/30 ML PO PRN (19:36)
[2023-03-12] MEDS ORDERED: BENZONATATE 200 MG CAPSULE PO PRN (19:36)
[2023-03-12] MEDS ORDERED: IBUPROFEN 400 MG TABLET (FP) PO PRN (19:36)
[2023-03-12] MEDS ORDERED: ONDANSETRON *ODT* 4 MG TABLET SL PRN (19:36)
[2023-03-12] MEDS ORDERED: LOPERAMIDE HCL 2 MG CAPSULE PO PRN (19:36)
[2023-03-12] MEDS ORDERED: IBUPROFEN 600 MG TABLET (FP) PO PRN (19:36)
[2023-03-12] MEDS ORDERED: MAG HYDROX/AL HYDROX/SIMETH 30 ML UNIT-DOSE CUP PO PRN (19:36)
[2023-03-12] MEDS ORDERED: DICYCLOMINE HCL 10 MG CAPSULE PO PRN (19:36)
[2023-03-12] MEDS ORDERED: guaiFENesin 600 MG TABLET.ER (FP) PO PRN (19:36)
[2023-03-12] MEDS ORDERED: hydrOXYzine PAMOATE 25 MG CAPSULE (FP) PO PRN (19:36)
[2023-03-12] MEDS ORDERED: METHOCARBAMOL 500 MG TABLET PO PRN (19:36)
[2023-03-12] MEDS ORDERED: POLYETHYLENE GLYCOL (HEALTHYLAX) 3350 17 GM PACKET PO PRN (19:36)
[2023-03-12] MEDS ORDERED: MAGNESIUM HYDROX 2400MG/30ML ORAL SUSPENSION 30 ML CUP PO PRN (19:36)
[2023-03-12] MEDS ORDERED: MELATONIN 5 MG TABLETS PO SCH (22:00)
[2023-03-12] MEDS: chlordiazePOXIDE HCL 25 MG CAPSULE PO SCH (22:20)
[2023-03-12] MEDS: THIAMINE HCL 100 MG TABLET (FP) PO SCH (22:20)
[2023-03-13] MEDS: chlordiazePOXIDE HCL 25 MG CAPSULE PO SCH ×2 (05:32→10:24)
[2023-03-13] MEDS: PRENATAL VITAMINS W/ FOLIC ACID TABLET (FP) PO SCH (10:23)
[2023-03-13] MEDS: GABAPENTIN 100 MG CAPSULE PO SCH ×2 (11:02→22:29)
[2023-03-13 11:05] LABS: HEMATOCRIT 36.4 % (32.4-45.2); HEMOGLOBIN 12.3 GM/dL (10.7-15.3); MCH 30.6 pg (25.7-33.7); MCHC 33.9 g/dl (32.0-36.0); MEAN CELL VOLUME 90.2 fl (80-96); MEAN PLT VOLUME 8.1 fl (7.5-11.1); PLATELET COUNT 148 10^3/uL (134-434); RBC 4.04 M/mm3 (3.60-5.2); RDW 16.6 % (11.6-15.6); WHITE BLOOD COUNT 3.1 K/mm3 (4.0-10.0)
[2023-03-13 11:10] LABS: POTASSIUM 3.6 mmol/L (3.5-5.1)
[2023-03-13 11:14] LABS: ALBUMIN 3.3 g/dl (3.4-5.0); BLOOD UREA NITROGEN 14.9 mg/dL (7-18); CALCIUM 8.3 mg/dL (8.5-10.1)
[2023-03-13 11:17] LABS: CREATININE 0.8 mg/dL (0.55-1.3)
[2023-03-13 11:19] LABS: TOT PROT 6.9 g/dl (6.4-8.2)
[2023-03-13 11:24] LABS: BILIRUBIN,TOTAL 2.3 mg/dL (0.2-1)
[2023-03-13] MEDS ORDERED: FLUCONAZOLE 150 MG TABLET PO ONE (11:45)
[2023-03-13] MEDS: propRANOLol HCL 10 MG TABLET PO SCH ×2 (13:22→22:29)
[2023-03-13] MEDS ORDERED: LORazepam 1 MG TABLET PO PRN (14:14)
[2023-03-13 15:10] LABS: EPI CELLS 28 /uL (0-25.1); HYALINE CASTS 1 /uL (0-3.1); PH,URINE 7.5 (5.0-8.0); URINE APPEARANCE CLEAR; URINE BILIRUBIN 1+ (NEGATIVE); URINE COLOR ORANGE; URINE GLUCOSE (UA) NEGATIVE (NEGATIVE); URINE KETONE TRACE (NEGATIVE); URINE LEUK ESTERASE 2+ (NEGATIVE); URINE NITRITE POSITIVE (NEGATIVE); URINE PROTEIN TRACE (NEGATIVE); URINE RBC 9 /uL (0-23.9); URINE WBC 92 /uL (0-25.8)
[2023-03-13] MEDS: LIPASE PO SCH (17:10)
[2023-03-13] MEDS: AMYLASE PO SCH (17:10)
[2023-03-13] MEDS: [UNRECOGNIZED DRUG - OTHER] PO SCH (17:10)
[2023-03-13] MEDS: PROTEASE PO SCH (17:10)
[2023-03-13 17:53] LABS: URINE BACTERIA 185 /uL (0-1359)
[2023-03-13] MEDS: THIAMINE HCL 100 MG TABLET (FP) PO SCH (22:29)
[2023-03-13] MEDS: traZODone HCL 100 MG TABLET (FP) PO SCH (22:29)
[2023-03-13] MEDS: FLUoxetine HCL 10 MG CAPSULE PO SCH (22:32)
[2023-03-14] MEDS ORDERED: LORazepam 0.5 MG TABLET PO PRN
[2023-03-14] MEDS ORDERED: chlordiazePOXIDE HCL 25 MG CAPSULE PO SCH (05:00)
[2023-03-14] MEDS: LORazepam 1 MG TABLET PO SCH ×4 (05:18→22:11)
[2023-03-14] MEDS: propRANOLol HCL 10 MG TABLET PO SCH ×3 (05:19→22:12)
[2023-03-14] MEDS: [UNRECOGNIZED DRUG - OTHER] PO SCH ×3 (07:19→17:25)
[2023-03-14] MEDS: LIPASE PO SCH ×3 (07:19→17:25)
[2023-03-14] MEDS: PROTEASE PO SCH ×3 (07:19→17:25)
[2023-03-14] MEDS: AMYLASE PO SCH ×3 (07:19→17:25)
[2023-03-14] MEDS: GABAPENTIN 100 MG CAPSULE PO SCH ×2 (10:22→22:11)
[2023-03-14] MEDS: PANTOPRAZOLE 40 MG TABLET PO SCH (10:22)
[2023-03-14] MEDS: OXYBUTYNIN CHLORIDE 5 MG TABLET PO SCH ×2 (10:22→22:12)
[2023-03-14] MEDS: PRENATAL VITAMINS W/ FOLIC ACID TABLET (FP) PO SCH (10:22)
[2023-03-14] MEDS: THIAMINE HCL 100 MG TABLET (FP) PO SCH (22:11)
[2023-03-14] MEDS: traZODone HCL 100 MG TABLET (FP) PO SCH (22:11)
[2023-03-14] MEDS: FLUoxetine HCL 10 MG CAPSULE PO SCH (22:12)
[2023-03-15] MEDS ORDERED: chlordiazePOXIDE HCL 10 MG CAPSULE PO PRN
[2023-03-15] MEDS: LORazepam 0.5 MG TABLET PO SCH ×4 (04:57→23:13)
[2023-03-15] MEDS ORDERED: chlordiazePOXIDE HCL 10 MG CAPSULE PO SCH (05:00)
[2023-03-15] MEDS: propRANOLol HCL 10 MG TABLET PO SCH ×3 (05:44→23:12)
[2023-03-15] MEDS: AMYLASE PO SCH ×3 (07:01→18:22)
[2023-03-15] MEDS: [UNRECOGNIZED DRUG - OTHER] PO SCH ×3 (07:01→18:22)
[2023-03-15] MEDS: LIPASE PO SCH ×3 (07:01→18:22)
[2023-03-15] MEDS: PROTEASE PO SCH ×3 (07:01→18:22)
[2023-03-15] MEDS: GABAPENTIN 100 MG CAPSULE PO SCH ×2 (10:09→23:12)
[2023-03-15] MEDS: SULFAMETHOXAZOLE/TRIMETHOPRIM 800MG/160MG D.S. TABLET PO SCH ×2 (10:09→23:11)
[2023-03-15] MEDS: PRENATAL VITAMINS W/ FOLIC ACID TABLET (FP) PO SCH (10:09)
[2023-03-15] MEDS: OXYBUTYNIN CHLORIDE 5 MG TABLET PO SCH ×2 (10:09→23:12)
[2023-03-15] MEDS: PANTOPRAZOLE 40 MG TABLET PO SCH (10:10)
[2023-03-15 13:14] VITALS: BP 110/65; PULSE 75; RESP 18; TEMP 97.3
[2023-03-15] MEDS: FLUoxetine HCL 10 MG CAPSULE PO SCH (23:12)
[2023-03-15] MEDS: traZODone HCL 100 MG TABLET (FP) PO SCH (23:12)
[2023-03-15] MEDS: THIAMINE HCL 100 MG TABLET (FP) PO SCH (23:13)
[2023-03-16] MEDS ORDERED: chlordiazePOXIDE HCL 10 MG CAPSULE PO SCH (05:00)
[2023-03-16] MEDS ORDERED: LORazepam 0.5 MG TABLET PO ONE (05:00)
[2023-03-17] MEDS ORDERED: chlordiazePOXIDE HCL 10 MG CAPSULE PO ONE (05:00)
== END 2023-03-15 18:00 | disposition home or self-care (01) | DRG 897 ==
LOC: YASAS 17:04 → Y6N 20:05
PROVIDERS: ADMIT Allergy & Immunology; ATTEND Surgery
PROC: HZ2ZZZZ Detoxification Services for Substance Abuse Treatment (ICD-10-PCS; principal; 2023-03-12)
DX: F10.230 Alcohol dependence with withdrawal, uncomplicated (principal); N39.0 Urinary tract infection, site not specified; F10.282 Alcohol dependence with alcohol-induced sleep disorder; K70.30 Alcoholic cirrhosis of liver without ascites; K21.9 Gastro-esophageal reflux disease without esophagitis; R41.82 Altered mental status, unspecified; Z87.19 Personal history of other diseases of the digestive system; Z88.0 Allergy status to penicillin
CPT/HCPCS: 36415; 80053; 81003; 81025; 82962; 85027; 86780; 87635

== ENCOUNTER 2023-03-15 14:49 | Emergency (ER) | payer OTHER ==
[2023-03-15 15:47] VITALS: TEMP 98; BMI 25.8
[2023-03-15 16:33] LABS: EPI CELLS >36 /uL (0-25.1); HYALINE CASTS 1 /uL (0-3.1); PH,URINE 6.5 (5.0-8.0); URINE APPEARANCE CLEAR; URINE BACTERIA 41 /uL (0-1359); URINE BILIRUBIN NEGATIVE (NEGATIVE); URINE COLOR YELLOW; URINE GLUCOSE (UA) NEGATIVE (NEGATIVE); URINE KETONE NEGATIVE (NEGATIVE); URINE LEUK ESTERASE 2+ (NEGATIVE); URINE NITRITE NEGATIVE (NEGATIVE); URINE PROTEIN NEGATIVE (NEGATIVE); URINE RBC 6 /uL (0-23.9); URINE WBC 52 /uL (0-25.8)
[2023-03-15 16:50] LABS: BASO % 0.4 % (0-2.0); EOS % 2.3 % (0-4.5); HEMATOCRIT 35.9 % (32.4-45.2); HEMOGLOBIN 11.9 GM/dL (10.7-15.3); LYMPH % 23.8 % (8-40); MCH 30.4 pg (25.7-33.7); MCHC 33.1 g/dl (32.0-36.0); MEAN CELL VOLUME 91.6 fl (80-96); MEAN PLT VOLUME 8.8 fl (7.5-11.1); MONO % 10.3 % (3.8-10.2); NEUT % 63.2 % (42.8-82.8); RBC 3.92 M/mm3 (3.60-5.2); RDW 16.7 % (11.6-15.6); WHITE BLOOD COUNT 4.9 K/mm3 (4.0-10.0)
[2023-03-15 17:09] LABS: POTASSIUM 4.2 mmol/L (3.5-5.1)
[2023-03-15 17:14] LABS: CALCIUM 9.3 mg/dL (8.5-10.1)
[2023-03-15 17:30] LABS: PLATELET COUNT 163 10^3/uL (134-434)
[2023-03-15 17:31] LABS: ALBUMIN 3.6 g/dl (3.4-5.0)
[2023-03-15 17:34] LABS: CREATININE 0.9 mg/dL (0.55-1.3)
[2023-03-15 17:36] LABS: TOT PROT 7.2 g/dl (6.4-8.2)
[2023-03-15 18:55] VITALS: BP 112/70; PULSE 72; RESP 16
== END 2023-03-15 18:54 | disposition home or self-care (01) ==
LOC: JER 14:49
DX: R41.82 Altered mental status, unspecified (principal); Z00.00 Encounter for general adult medical examination without abnormal findings
CPT/HCPCS: 36415; 70450-TC; 80053; 80307; 81003; 82140; 84443; 85025; 87086; 99284-25